=== PATIENT | female | born 1990 | race Caucasian/White ===

== ENCOUNTER 2020-08-17 22:05 | Emergency (ER) | payer BC, MEDICAID ==
[~2020-08-17] VITALS: Ht 167.6 cm; Wt 108.4 kg
[~2020-08-17 22:05] MED LIST: PHEN100T82 PO; SULF1TAB24 PO
[2020-08-17] MEDS ORDERED: IV NORMAL SALINE 1,000ML 1,000 ML IV ONE (22:45)
[2020-08-17] MEDS ORDERED: KETOROLAC 30 MG/ML VIAL. IVP ONE (22:45)
[2020-08-17] MEDS ORDERED: DEXAMETHASONE SOD PHOS 10 MG/ML VIAL. IVP ONE (22:45)
[2020-08-17] MEDS ORDERED: diphenhydrAMINE 50 MG/ML VIAL IVP ONE (22:45)
[2020-08-17] MEDS ORDERED: METOCLOPRAMIDE HCL 10 MG/2 ML VIAL. IVP ONE (22:45)
--- NOTE | 2020-08-17 22:52 | PHYS DOC ---
Past History Past Medical History: No Pertinent History Past Surgical History: No Surgical History Alcohol Use: Rarely Drug Use: None General Adult EDM: Chief Complaint: HEADACHE HPI: HPI: 29-year-old female presents with headache. She has had a headache for a month. She was seen by a provider and placed on some kind of medication a while ago but it has not helped. The patient is feeling worse today. She has been nauseated all day. She is just exacerbated once the headache to at least decrease. She denies falls or trauma. Her mother has had brain tumors. The patient has no k nown medical conditions. She does not take any medications daily she has anaphylactic allergy to aspirin but is able to take Motrin and ibuprofen. She is photophobic. She denies fever or chills. Review of Systems: Review of Systems: Constitutional: Denies fever or chills Eyes: Denies change in visual acuity HENT: Denies nasal congestion or sore throat Respiratory: Denies cough or shortness of breath Cardiovascular: Denies chest pain or edema GI: Denies abdominal pain, nausea, vomiting, bloody stools or diarrhea : Denies dysuria Musculoskeletal: Denies back pain or joint pain Integument: Denies rash Neurologic: Headache. Denies focal weakness or sensory changes Endocrine: Denies polyuria or polydipsia Lymphatic: Denies swollen glands Psychiatric: Denies depression or anxiety Current Medications: Current Meds: Current Medications Medications (Trade) Dose Ordered Sig/Eddie Start Time Stop Time Status Last Admin Dose Admin Dexamethasone Sodium Phosphate (Decadron) 10 mg 1X ONCE 08/17/20 22:45 08/17/20 22:46 UNV Diphenhydramine HCl (Benadryl) 50 mg 1X ONCE 08/17/20 22:45 08/17/20 22:46 UNV Ketorolac Tromethamine (Toradol 30mg Vial) 30 mg 1X ONCE 08/17/20 22:45 08/17/20 22:46 UNV Metoclopramide HCl (Reglan Vial) 10 mg 1X ONCE 08/17/20 22:45 08/17/20 22:46 UNV Sodium Chloride 1,000 ml @ 1,000 mls/hr 1X ONCE 08/17/20 22:45 08/17/20 23:44 UNV Allergies: Allergies: Allergies Coded Allergies Type Severity Reaction Last Updated Verified aspirin Allergy Severe 01/01/16 Yes oxycodone Allergy Unknown 08/17/20 Yes Physical Exam: PE: Constitutional: Well developed, well nourished, no acute distress, non-toxic appearance. [] HENT: Normocephalic, atraumatic, bilateral external ears normal, oropharynx moist, no oral exudates, nose normal. [] Eyes: PERRLA, EOMI, conjunctiva normal, no discharge. Photophobia. [] Neck: Normal range of motion, no tenderness, supple, no stridor. [] Cardiovascular: Heart rate regular rhythm, no murmur [] Lungs & Thorax: Bilateral breath sounds clear to auscultation [] Abdomen: Bowel sounds normal, soft, no tenderness, no masses, no pulsatile m asses. [] Skin: Warm, dry, no erythema, no rash. [] Back: No tenderness, no CVA tenderness. [] Extremities: No tenderness, no cyanosis, no clubbing, ROM intact, no edema. [] Neurologic: Alert and oriented X 3, normal motor function, normal sensory function, no focal deficits noted. [] Psychologic: Affect normal, judgement normal, mood normal. [] EKG: EKG: [] Radiology/Procedures: Radiology/Procedures: [] Impressions: RS Compliance Statement: One or more of the following individualized dose reduction techniques were utilized for this examination: 1. Automated exposure control 2. Adjustment of the mA and/or kV according to patient size 3. Use of iterative reconstruction technique CT head without contrast 08/17/2020 11:20 PM INDICATION: Headache COMPARISON: None available TECHNIQUE: Multiple axial CT images of the head were obtained from skull base through the vertex without intravenous contrast. FINDINGS: Head: Ventricles, sulci and basal cisterns are within normal limits. There is no hydrocephalus. Harper-white matter differentiation is normal. There is no acute intracranial hemorrhage. There is no mass, mass effect or midline shift. Posterior fossa is normal in appearance. Visualized portions of the orbits are normal. Paranasal sinuses are well aerated. Mastoid air cells are well aerated. Scalp and calvaria are normal. IMPRESSION: No acute intracranial hemorrhage. Electronically signed by: Griffin Babin MD (08/18/2020 12:01 AM) [facility] DICTATED AND SIGNED BY: GRIFFIN BABIN MD DATE: 08/18/20 0000 CC: INDERJIT GONZALEZ DO; DEVAUGHN ESCOBAR MD ~MTH0 0 Heart Score: C/O Chest Pain: N/A Risk Factors: Risk Factors: DM, Current or recent (<one month) smoker, HTN, HLP, family history of CAD, obesity. Risk Scores: Score 0 - 3: 2.5% MACE over next 6 weeks - Discharge Home Score 4 - 6: 20.3% MACE over next 6 weeks - Admit for Clinical Observation Score 7 - 10: 72.7% MACE over next 6 weeks - Early Invasive Strategies Course & Med Decision Making: Course & Med Decision Making Pertinent Labs and Imaging studies reviewed. (See chart for details) Head CT is negative for acute findings. For her headache I given her 1 L normal saline, 50 mg of Benadryl, 30 mg of Toradol, 10 mg of Decadron, and 10 mg of Reglan. She is feeling better at this time. The patient's urine is positive for cocaine. This could certainly cause significant headaches. She is stable for discharge. [] Dragon Disclaimer: Dragon Disclaimer: This electronic medical record was generated, in whole or in part, using a voice recognition dictation system. Departure Departure: Impression: Primary Impression: Migraine headache without aura Qualified Codes: G43.011 - Migraine without aura, intractable, with status migrainosus Disposition: HOME / SELF CARE / HOMELESS Condition: IMPROVED Referrals: DEVAUGHN ESCOBAR MD (PCP) Patient Instructions: Migraine Headache, [id number] INDERJIT GONZALEZ DO Aug 17, 2020 22:52
[2020-08-17 23:43] LABS: CALCIUM 8.9 mg/dL (8.5-10.1); CREATININE 0.7 mg/dL (0.6-1.0); GFR 97.6; POTASSIUM 3.7 mmol/L (3.5-5.1)
[2020-08-17 23:50] LABS: ALBUMIN 3.7 g/dL (3.4-5.0); ALBUMIN/GLOBULIN RATIO 1.1 (1.0-1.7); TOTAL BILIRUBIN 0.4 mg/dL (0.2-1.0); TOTAL PROTEIN 7.1 g/dL (6.4-8.2)
[2020-08-17 23:51] LABS: BARBITURATES NEG (NEG); BENZODIAZEPINES NEG (NEG); CANNABINOIDS NEG (NEG); COCAINE POS (NEG); METHADONE NEG (NEG); OPIATES NEG (NEG); PHENCYCLIDINE NEG (NEG)
[2020-08-17 23:55] LABS: AMPHETAMINE/METHAMPHETAMINE NEG (NEG)
--- NOTE | 2020-08-18 00:03 | RAD ---
PQRS Compliance Statement: One or more of the following individualized dose reduction techniques were utilized for this examinat ion: 1. Automated exposure control 2. Adjustment of the mA and/or kV according to patient size 3. Use of iterative reconstruction technique CT head without contrast 08/17/2020 11:20 PM INDICATION: Headache COMPARISON: None available TECHNIQUE: Multiple axial CT images of the head were obtained from skull base through the vertex with out intravenous contrast. FINDINGS: Head: Ventricles, sulci and basal cisterns are within normal limits. There is no hydrocephalus. Harper-white matter differentiation is normal. There is no acute intracranial hemorrhage. There is no mass, mass e ffect or midline shift. Posterior fossa is normal in appearance. Visualized portions of the orbits are normal. Paranasal sinuses are well aerated. Mastoid air cells a re well aerated. Scalp and calvaria are normal. IMPRESSION: No acute intracranial hemorrhage. Electronically signed by: Trisha Ramirez MD (08/18/2020 12:01 AM) [facility]
[2020-08-18 00:17] LABS: BASO % 0 % (0-3); EOS % 0 % (0-3); HEMATOCRIT 41.7 % (36.0-47.0); HEMOGLOBIN 14.3 g/dL (12.0-15.5); LYMPH # 3.7 x10^3/uL (1.0-4.8); LYMPH % 39 % (24-48); MEAN CORPUSCULAR HEMOGLOBIN 30 pg (25-35); MEAN CORPUSCULAR HGB CONC 34 g/dL (31-37); MEAN CORPUSCULAR VOLUME 87 fL (79-100); MONO # 0.6 x10^3/uL (0.0-1.1); MONO % 6 % (0-9); NEUT # 5.1 x10^3uL (1.8-7.7); NEUT % 54 % (31-73); PLATELET COUNT 343 x10^3/uL (140-400); RED BLOOD COUNT 4.78 x10^6/uL (3.50-5.40); RED CELL DISTRIBUTION WIDTH 13.2 % (11.5-14.5); WHITE BLOOD COUNT 9.5 x10^3/uL (4.0-11.0)
[2020-08-18 00:27] LABS: BILIRUBIN,URINE NEG (NEG); CLARITY,URINE CLEAR; COLOR,URINE YELLOW; GLUCOSE,URINE NEG (NEG); NITRITE,URINE NEG (NEG); UROBILINOGEN,URINE 0.2 mg/dL (0.2 mg/dL)
[2020-08-18 00:28] LABS: BACTERIA,URINE 0 /HPF (0-FEW); RBC,URINE RARE /HPF (0-2); SQUAMOUS EPITHELIAL CELL,UR OCC /LPF; WBC,URINE 0 /HPF (0-4)
[2020-08-18 00:50] VITALS: BP 131/72
== END 2020-08-18 00:48 | disposition home or self-care (01) ==
LOC: ER 22:05
DX: G43.011 Migraine without aura, intractable, with status migrainosus (principal); Z88.6 Allergy status to analgesic agent; Z88.5 Allergy status to narcotic agent
CPT/HCPCS: 36415; 70450; 80053; 80307; 81001; 81025; 85025; 96361; 96374; 96375; 99284; J1100; J1200; J1885; J2765; J7030

== ENCOUNTER 2020-11-08 13:47 | Emergency (ER) | payer BC ==
[~2020-11-08] VITALS: Ht 165.1 cm; Wt 105.8 kg
--- NOTE | 2020-11-08 14:09 | PHYS DOC ---
Past History Past Medical History: No Pertinent History (AHSAN CASTRO APRN) Past Surgical History: Cholecystectomy (AHSAN CASTRO APRN) Alcohol Use: Occasionally Drug Use: None (AHSAN CASTRO APRN) General Adult EDM: Chief Complaint: LOWEREXTREMITY INJURY HPI: HPI: Patient is a 30-year-old female that presents today with right toe pain. Patient states that last evening she hit her toe against the side of a table and had a positive dislocation which she relocated it at the time. Patient is here today for evaluation of increased swelling and bruising of area. Patient states took ibuprofen prior to arrival today, has been wearing cowboy boots that do hel p with keeping toe in alligment. (AHSAN CASTRO APRN) Review of Systems: Review of Systems: Constitutional: Denies fever or chills Eyes: Denies change in visual acuity HENT: Denies nasal congestion or sore throat Respiratory: Denies cough or shortness of breath Cardiovascular: Denies chest pain or edema GI: Denies abdominal pain, nausea, vomiting, bloody stools or diarrhea : Denies dysuria Musculoskeletal: right lateral foot pain Integument: Denies rash Neurologic: Denies headache, focal weakness or sensory changes Endocrine: Denies polyuria or polydipsia Lymphatic: Denies swollen glands Psychiatric: Denies depression or anxiety (AHSAN CASTRO APRN) Allergies: Allergies: Allergies Coded Allergies Type Severity Reaction Last Updated Verified aspirin Allergy Severe 01/01/16 Yes oxycodone Allergy Unknown 08/17/20 Yes (AHSAN CASTRO APRN) Physical Exam: PE: Constitutional: Well developed, well nourished, no acute distress, non-toxic appearance. [] HENT: Normocephalic, atraumatic, bilateral external ears normal, oropharynx moist, no oral exudates, nose normal. [] Eyes: PERRLA, EOMI, conjunctiva normal, no discharge. [] Neck: Normal range of motion, no tenderness, supple, no stridor. [] Cardiovascular:Heart rate regular rhythm, no murmur [] Lungs & Thorax: Bilateral breath sounds clear to auscultation [] Abdomen: Bowel sounds normal, soft, no tenderness, no masses, no pulsatile masses. [] Skin: Warm, dry, no erythema, no rash. [] Back: No tenderness, no CVA tenderness. [] Extremities: Right 5th toe and lateral foot swelling and bruising noted. Right DP and PT pulse 2+. Neurologic: Alert and oriented X 3, normal motor function, normal sensory function, no focal deficits noted. [] Psychologic: Affect normal, judgement normal, mood normal. [] (AHSAN CASTRO APRN) EKG: EKG: [] (AHSAN CASTRO APRN) Radiology/Procedures: Radiology/Procedures: []PROCEDURE: TOES RIGHT Study: XR RT TOE 2+ VIEWS Indication: Reported dislocation. Fifth toe pain. Comparison: None. Findings: Nondisplaced, obliquely oriented fracture extending along the shaft and head of the fifth proximal phalanx. No intra-articular extension is identified. No acute fracture seen elsewhere throughout the partially assessed foot. No traumatic malalignment across the fifth toe MTP or IP joints. Impression: Nondisplaced, extra-articular fracture of the fifth proximal phalanx. No dislocation of the adjacent joints. Electronically signed by: KEI PERDOMO MD (11/08/2020 2:43 PM) [id number] (AHSAN CASTRO APRN) Heart Score: C/O Chest Pain: N/A Risk Factors: Risk Factors: DM, Current or recent (<one month) smoker, HTN, HLP, family history of CAD, obesity. Risk Scores: Score 0 - 3: 2.5% MACE over next 6 weeks - Discharge Home Score 4 - 6: 20.3% MACE over next 6 weeks - Admit for Clinical Observation Score 7 - 10: 72.7% MACE over next 6 weeks - Early Invasive Strategies (AHSAN CASTRO APRN) Course & Med Decision Making: Course & Med Decision Making Pertinent Labs and Imaging studies reviewed. (See chart for details) X-ray shows a fracture in the fifth toe. Will alfreda tape toe have patient follow-up with orthopedics as needed for any concerns. Will encouraged to ice and elevate 20 minutes on 3-4 times daily over the next 72 hours. Will encourage patient to wear supportive shoes. Tylenol or ibuprofen as needed for pain. Work excuse given for the next 3 days off, she may return to work on 11 November. [] (AHSAN CASTRO APRN) Dragon Disclaimer: Dragon Disclaimer: This electronic medical record was generated, in whole or in part, using a voice recognition dictation system. (AHSAN CASTRO APRN) Attending Co-Sign The patient was seen and interviewed as well as examined at the bedside. The chart was reviewed. The case was discussed. Agree with the plan of care. (INDERJIT GONZALEZ DO) Departure Departure: Impression: Primary Impression: Fracture of toe of right foot Qualified Codes: S92.534A - Nondisplaced fracture of distal phalanx of right lesser toe(s), initial encounter for closed fracture Disposition: HOME / SELF CARE / HOMELESS Condition: GOOD Referrals: DEVAUGHN ESCOBAR MD (PCP) JOHN OLIVAS MD Patient Instructions: Toe Fracture, [id number] Additional Instructions: Keep toe alfreda taped, ice 20 minutes 3-4 times daily for the next 72 hours. Wear supportive shoes. Follow up with orthopedic physician as needed. May return to work on November 11, 2020. Tylenol or ibuprofen as needed for pain. AHSAN CASTRO APRN Nov 08, 2020 14:09 INDERJIT GONZALEZ DO Nov 09, 2020 08:52
--- NOTE | 2020-11-08 14:45 | RAD ---
Study: XR RT TOE 2+ VIEWS Indication: Reported dislocation. Fifth toe pain. Comparison: None. Findings: Nondisplaced, obliquely oriented fracture extending along the shaft and head of the fifth proximal ph alanx. No intra-articular extension is identified. No acute fracture seen elsewhere throughout the pa rtially assessed foot. No traumatic malalignment across the fifth toe MTP or IP joints. Impression: Nondisplaced, extra-articular fracture of the fifth proximal phalanx. No dislocation of the adjacent joints. Electronically signed by: KEI PERDOMO MD (11/08/2020 2:43 PM) [id number]
[2020-11-08] MEDS ORDERED: IBUPROFEN 600 MG TABLET. PO ONE ×2 (15:05→15:15)
[2020-11-08 15:12] VITALS: BP 134/83
== END 2020-11-08 15:13 | disposition home or self-care (01) ==
LOC: ER 13:47
DX: S92.514A Nondisplaced fracture of proximal phalanx of right lesser toe(s), initial encounter for closed fracture (principal); Z88.6 Allergy status to analgesic agent; Z88.5 Allergy status to narcotic agent; W22.03XA Walked into furniture, initial encounter; Y93.89 Activity, other specified; Y92.89 Other specified places as the place of occurrence of the external cause; Y99.8 Other external cause status
CPT/HCPCS: 73660; 99283